=== PATIENT | female | born 1975 | race Caucasian/White ===

== ENCOUNTER → 2016-03-06 | Outpatient (CLI) | payer MEDICAID ==
[~2016-03-06] MED LIST: DILAUDID4 MG PO; FLEXERIL10 MG PO; GABAPENTIN 600600 MG PO; HYDROCODONE-APA1 TA2 PO; LISINOPRIL 5MG T5 MG PO; NORCO 325 MG-101 TAB PO; NORCO 325 MG-51 TAB PO; PHENTERMINE H37.5 M3 PO; PREMARIN 0.60.625 MG PO; PRILOSEC40 MG PO; TRAMADOL 50MG T50 M1 PO; TYLENOL ES500 M1 PO; ZANAFLEX4 M2 PO
[2016-03-06 14:00] LABS: AMPHETAMINES/METAMPHETAMINES NEGATIVE ng/mL (<1000)
== END ==
LOC: LAB 13:40
PROVIDERS: Emergency Medicine
DX: Z79.899 Other long term (current) drug therapy (principal)

== ENCOUNTER → 2016-04-26 | Outpatient (CLI) | payer MEDICAID ==
[2016-04-26 16:00] LABS: AMPHETAMINES/METAMPHETAMINES NEGATIVE ng/mL (<1000)
== END ==
LOC: LAB 13:42
PROVIDERS: Emergency Medicine
DX: Z79.899 Other long term (current) drug therapy (principal)

== ENCOUNTER 2016-11-15 12:10 | Emergency (ER) | payer MEDICAID ==
[~2016-11-15] VITALS: Ht 165.1 cm; Wt 89.8 kg
[2016-11-15] MEDS ORDERED: ESTRACE 2MG. TAB2 MG PO (12:22)
[2016-11-15] MEDS ORDERED: SERTRALINE 100100 MG PO (12:22)
[2016-11-15] MEDS ORDERED: BUPRENORPHINE H1 TAB SL (12:23)
[2016-11-15 12:24] LABS: URINE BILIRUBIN - DIPSTICK NEGATIVE (NEG); URINE BLOOD NEGATIVE (NEG)
--- NOTE | 2016-11-15 12:26 | Emergency Room Report ---
History of Present Illness Time Seen by [id number] Presenting Problem in Triage Pt arrived:Walked Presenting Problem:PT REPORTS VOMITTING THAT BEGAN AFTER EATING THIS MORNING, REPORTS BURNING TYPE EPIGASTRIC PAIN, STATES "IT'S LIKE THE WORST HEARTBURN AGATA EVER HAD". 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 N Clinical Suspician of Infection? N Mental Status: 1 - Regular (Normal Baseline) Sepsis Risk:Low Sepsis Risk Have you (or family members/close friends) recently traveled outside the [place]? N If Yes, where/when: Have you had exposure to infectious disease within the past month? N TB? Other? Specify: Patient states she fell her normal self at 10 K breakfast and at 10:30 had onset of nausea and vomiting she states she has heartburn moderate in severity from her epigastric area going through her chest and into her throat. She states it feels like previous heartburn that she's had she's had nausea and vomiting with a denies diarrhea denies fevers or chills. She states that she's had some chest tightness as well. States she's had chest tightness in the past and has seen her doctor for it and he has given her antacid medicines. No radiation of pain. states she rean out of her antacid medicine, and it feels like bad heartburn, with burning in back of throat. not a new pain for her. Source patient ALLERGIES Coded Allergies: codeine (Intermediate, SWELLING 04/21/16) morphine (Intermediate, MAKES SKIN STING, MAKES FEEL "HATEFUL" 04/21/16) Home Medications Reported Medications Estradiol (Estrace 2MG. Tablet) 2 MG PO DAILY #30 Sertraline Hydrochloride (Sertraline 100MG) 100 MG PO DAILY #30 BUPRENORPHINE HCL/NALOXONE HCL (Buprenorphin-Naloxon 8-2 MG Sl) 2 TAB SL DAILY #14 Gabapentin (Gabapentin 600MG) 600 MG PO Q8 History Medical History General CAD? No Angina: No [place]: No Hypertension? Yes Hyperlipidemia? No CHF? No DVT? No PE? No COPD? No Asthma? No Anemia? No GERD? Yes Gastric ulcers? No GI Bleed? No Hernia? No Thyroid Problems? No Hypothyroidism? No CVA? No Seizures? No Diabetes? No Renal Insuffiency? No End Stage Renal Disease? No UTI? Yes Stones? Yes GB Disease: No Nephritic Syndrome? No Asplenia? No Hepatitis? No Sickle Cell Disease? No Arthritis? No Migraines? No Cataracts? No Glaucoma? No MRSA? No HIV? No TB? No Anxiety? No Depression? No Cancer? No More? 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 Eyes: conjunctiva/corneas clear ENT: Mucous membranes moist. Neck: No jugular venous distention. Cardiac: regular rate and rhythm Lungs: rhonchi auscultation bilaterally Abdomen: +epigastric, Nondistended, positive bowel sounds, no rebound : No CVA tenderness Extremities: no edema Musculoskeletal: No chest wall tenderness Skin: No rashes or lesions to exposed skin. Neurologic: Alert. No gross focal deficits Psychiatric: Normal affect (Eben BULLARD, Donny) General Appearance normal appearance Respiratory Status No: respiratory distress. Cardiovascular normal exam Neurologic alert Medical Decision Making LABS/Meds/Orders Pt receiving controlled substance in ED? No Comment pt states feels better, still a little burning in her throat. still with minimal epigastric tenderness which reproduces her pain. 236 pt states GI cocktail took all of her throat burning away, no complaint of heartburn or pain, dw pt to return if chest pain or any problems to ER. will restart antacids. Results/Orders Laboratory Tests 11/15/16 1235: Sodium 139, Potassium 3.9, Chloride 104, Carbon Dioxide 30, BUN 10, Creatinine 0.8, Estimated Creat Clear 131, Estimated GFR (MDRD) 79, Glucose 94, Calcium 9.0 , Total Bilirubin 0.3, AST 21, ALT 40, Alkaline Phosphatase 100, Troponin I < 0.02, Total Protein 8.1, Albumin 4.1, Globulin 4.0 H, Albumin/Globulin Ratio 1.0 L, Lipase 88, WBC 8.1, RBC 5.25, Hgb 15.5, Hct 45.8, MCV 87.3, RDW 12.5, Plt Count 259, MPV 8.2, Gran % 56.7, Gran # 4.6, Lymphocytes % 30.3, Monocytes % 6.6, Eosinophils % 5.8, Basophils % 0.6, Lymphocytes # 2.4, Monocytes # 0.5, Eosinophils # 0.5 H, Basophils # 0.1, PUBS MCHC 33.8, MCH 29.5 11/15/16 1217: Urine Color YELLOW, Urine Appearance CLEAR, Urine pH 6.0, Ur Specific [place] >= 1.030, Urine Protein NEGATIVE, Urine Ketones NEGATIVE, Urine Blood NEGATIVE, Urine Nitrate NEGATIVE, Urine Bilirubin NEGATIVE, Urine Urobilinogen 0.2, Ur Leukocyte Esterase 1+ H, Urine RBC OCC, Urine WBC 3-5, Ur Squamous Epith Cells 5-10, Urine Bacteria 2+, Urine Glucose NEGATIVE Current Medication Orders Sig/Alek Start time Last Medication Dose Route Stop Time Status Admin Multi-Ingredient GI 60 ML ONCE ONE 11/15 1415 DC 11/15 Drug PO 11/15 141 1416 Multi-Ingredient GI 0 .STK-MED ONE 11/15 1414 DC Drug PO Famotidine 20 MG ONCE ONE 11/15 1245 DC 11/15 IV 11/15 1246 1242 Sodium Chloride 8 ML ONCE ONE 11/15 1245 DC IV 11/15 1246 Famotidine 0 .STK-MED ONE 11/15 1241 DC IV Sodium Chloride 1,000 ML .STK-MED ONE 11/15 1240 DC IV Ondansetron HCl 0 .STK-MED ONE 11/15 1239 DC .ROUTE Ondansetron HCl 4 MG ONCE ONE 11/15 1230 DC 11/15 IV 11/15 1231 1242 Sodium Chloride 10 ML PRN PRN 11/15 1230 AC IV 11/16 1226 Sodium Chloride 1,000 ML .Q1H1M 11/15 1230 DC 11/15 IV 11/15 1330 1242 Sodium Chloride 10 ML PRN PRN 11/15 1230 AC IV 11/16 1227 Orders Procedure Date/time Status ELECTROCARDIOGRAM REQUEST 11/15 1232 Active CHEST(2 VIEWS-NOT PORTABLE) 11/15 1232 Active IV SALINE LOCK 11/15 1229 Active TROPONIN I 11/15 1229 Complete LIPASE 11/15 1229 Complete CBC WITH AUTO DIFF 11/15 1229 Complete CHEM 12 PROFILE 11/15 1229 Complete CULTURE, URINE 11/15 1217 Active URINALYSIS/COMPLETE 11/15 1217 Complete 12 LEAD EKG-JOSE (INITIAL) 11/15 UNK Active 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 Rhythm Sinus Bradycardia Rate 58 Ectopy No Comments Normal axis bradycardia otherwise unremarkable electrocardiogram XRAY/CT/US XRAY/CT/US XRAY chest XR interpretation by reviewed by me Xray Results normal/NAD, no infiltrates Departure Departure Time of Disposition 1437 Disposition DC Home or Self Care(routine) Clinical Impression Primary Impression: Gastroenteritis Secondary Impressions: Epigastric pain Condition STABLE Referrals ARMIN PETERS APRN (PCP/Family) Patient Instructions DI for Abdominal Pain-Adult Additional Instructions return if any chest pain occurs to ER for recheck take your antacids follow up with your PMD, call for recheck Discharge Counseling Counseled pt/family regarding diagnosis, test results, medications/RX, home care, follow up needs Prescriptions Current Visit Scripts Esomeprazole Magnesium (Nexium 24HR) 20 MG PO DAILY #20 Ondansetron Hydrochloride (Ondansetron Odt) 4 MG PO TIDP PRN NAUSEA AND VOMITING #10 ODT ED Critical Care Critical Care No at [id number]
[2016-11-15 12:44] LABS: HEMOGLOBIN 15.5 g/dL (12.2-16.2); LYMPH # 2.4 K/mm3 (0.7-4.5); LYMPH % 30.3 % (10-50.0)
[2016-11-15 13:11] LABS: BUN 10 mg/dL (7-18)
[2016-11-15 13:12] LABS: GFR (ESTIMATED) 79 ML/MIN (59-)
[2016-11-15] MEDS ORDERED: NEXIUM 24HR20 M1 PO (14:41)
[2016-11-15] MEDS ORDERED: ONDANSETRON4 M1 PO (14:41)
[2016-11-15 14:42] VITALS: BP 143/83
--- NOTE | 2016-11-15 15:44 | RADIOLOGY REPORT PS360 ---
CHEST(2 VIEWS-NOT PORTABLE) INDICATION: Chest pain COMPARISON: PA and lateral chest 11/23/2015 FINDINGS: The lung arora are well expanded and appear clear of infiltrate. There is a stable small calcified granuloma left upper lobe The cardiomediastinal silhouette and vascularity are normal. The costophrenic angles are clear. The bony thorax is normal. IMPRESSION: Normal chest.
--- OUTSIDE RECORDS SUMMARY | 2016-11-23 14:05 | External Medical Summary Rpt | CCD ---
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 OUTPATIEN 6 6 PHYSICIAN ANDREW T VISIT S GROUP 15 MINUTES [facility] - 6 6 [facility] INC T OFFICE 14060 [facility] OUTPATIEN 6 6 PHYSICIAN ANDREW T VISIT S GROUP 10 MINUTES [facility] - 6 6 [facility] INC T OFFICE 30199 [facility] OUTPATIEN 6 6 PHYSICIAN ANDREW T VISIT S GROUP 10 MINUTES [facility] - 5 5 [facility] INC T OFFICE 59440 [facility] OUTPATIEN 5 5 PHYSICIAN ANDREW T VISIT 5 S GROUP MINUTES OFFICE 91147 [facility] OUTPATIEN 5 5 [facility] NEW 30 MEDICAL MINUTES GROUP OFFICE 96687 SHAHEEN PETERS OUTPATIEN 5 5 [facility] NEW 30 URGENT MINUTES TREAT OFFICE 50370 [facility] JEAN[facility] OUTPATIEN 5 5 [facility] T VISIT HOSPITAL 15 MINUTES OFFICE 44243 [facility]AR BUX BUX ANJ OUTPATIEN 5 5 [facility] T NEW 30 MINUTES [facility] - 5 5 [facility] T OFFICE 80713 [facility] OUTPATIEN 5 5 [facility] T VISIT INC 10 MINUTES OFFICE 36367 [facility] YMAN OUTPATIEN 5 5 PHYSICIAN EUG T VISIT S GROUP 15 MINUTES OFFICE 03324 [facility] SMOOTH OUTPATIEN 5 5 PHYSICIAN HIWOT T VISIT 5 S GROUP MINUTES OFFICE 32355 [facility] OUTPATIEN 5 5 PHYSICIAN ANDREW T VISIT S GROUP 10 MINUTES [facility] - 5 5 [facility] INC T OFFICE 18345 [facility] OUTPATIEN 5 5 PHYSICIAN ANDREW T VISIT S GROUP 10 MINUTES OFFICE 33763 [facility] OUTPATIEN 5 5 PHYSICIAN ANDREW T VISIT S GROUP 10 MINUTES [facility] - 5 5 [facility] T OFFICE 75778 ALE[facility] SIMENTAL OUTPATIEN 5 5 [facility] TIMOTHY T VISIT 15 MINUTES OFFICE 15691 [facility] OUTPATIEN 5 5 PHYSICIAN ANDREW T VISIT S GROUP 10 MINUTES OFFICE 61129 [facility] OUTPATIEN 5 5 PHYSICIAN ANDREW T VISIT 5 S GROUP MINUTES [facility] - 5 5 [facility] T [facility] 4 4 [facility] T [facility] 4 4 [facility] T OFFICE 33320 [facility] OUTPATIEN 4 4 PHYSICIAN ANDREW T VISIT S GROUP 10 MINUTES OFFICE 20960 [facility] OUTPATIEN 4 4 PHYSICIAN ANDREW T VISIT 5 S GROUP MINUTES OFFICE 60031 [facility] OUTPATIEN 4 4 PHYSICIAN ANDREW T VISIT S GROUP 10 MINUTES OFFICE 36407 [facility] OUTPATIEN 4 4 PHYSICIAN ANDREW T VISIT S GROUP 10 MINUTES OFFICE 12185 ALEA SIMENTAL OUTPATIEN 4 4 [facility] TIMOTHY T VISIT 15 MINUTES OFFICE 98325 [facility] OUTPATIEN 4 4 PHYSICIAN ANDREW T VISIT 5 S GROUP MINUTES [facility] - 4 4 [facility] INC T EMERGENCY 24086 [facility] 4 4 [facility] T VISIT LOW/MODER SEVERITY [facility]OSPITAL [facility] - 4 4 [facility] [place] [place] [facility] INPATIENT [facility] - 4 4 [facility] 95946 [facility] SIMENTAL OUTPATIEN 4 4 [facility] AGUIRRE T VISIT 15 MINUTES EMERGENCY 94588 [facility] 4 4 [facility] EMERGENCY T VISIT PHYS MODERATE SEVERITY [facility] - 4 4 [facility] T OFFICE 76180 ALEA SIMENTAL OUTPATIWALDEMAR 4 4 [facility] AGUIRRE T VISIT 15 MINUTES [facility] - 4 4 [facility] 49216 [facility] 4 4 PHYSICIAN ANDREW T VISIT 5 S GROUP MINUTES INITIAL 88742 [facility] SIMENTAL PREVENTIV 4 4 [facility] AGUIRRE E MEDICINE NEW PT AGE [id number] [facility] 4 [facility]
--- OUTSIDE RECORDS SUMMARY | 2016-11-23 14:05 | External Medical Summary Rpt | CCD ---
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 Name Role Phone LARRY SANCHEZ, LARRY SANCHEZ Unavailable Unavailable JEFF WHITE MD, PSC, Unavailable Unavailable JEFF WHITE MD, PSC [facility] Unavailable Unavailable MED[facility] GROUP, [facility] BEINEKE MAREI, BEINEKE Unavailable Unavailable MARIE CHAVEZ, CHAVEZ Unavailable Unavailable CHAVEZ ALL, CHAVEZ ALL Unavailable Unavailable [facility] Unavailable Unavailable [facility] BUX ANJ, BUX ANJ Unavailable Unavailable [facility], Unavailable Unavailable [facility] Unavailable Unavailable [facility] PEGGY LUCHO, Unavailable Unavailable PEGGY LUCHO PEGGY LUCHO, Unavailable Unavailable PEGG[facility] LUCHO ESTIVEN ANDREW, ESTIVEN Unavailable Unavailable ANDREW [facility] [place], Unavailable Unavailable [facility] [place] DELAIR, DELAIR Unavailable Unavailable FEEBACK REE, FEEBACK Unavailable Unavailable REE FRYMAN EUG, FRYMAN Unavailable Unavailable EUG LARRY, LARRY Unavailable Unavailable LARRY ANDREW, LARRY Unavailable Unavailable ANDREW ALEA SIMENTAL MD, Unavailable Unavailable ALEA SIMENTAL TIMOTHY, HARPEL Unavailable Unavailable TIMOT[facility] Unavailable Unavailable INC, [facility] Unavailable Unavailable HOSPITAL, [facility], [facility]available Unavailable [facility] LORRAINE NAN, LORRAINE Unavailable Unavailable NAN [facility] Unavailable Unavailable [facility], [facility] SUSAN WHITE MD, SUSAN Unavailable Unavailable CHRISTOPHER SANCHEZ, Unavailable Unavailable MANDIE ANN [facility] Unavailable Unavailable [facility], [facility] PETTEY JAM, PETTEY Unavailable Unavailable JAM NICKO HEN, NICKO Unavailable Unavailable HEN PUND CHR, PUND CHR Unavailable Unavailable [facility] Unavailable Unavailable [facility] PABLO SANDOVAL, PABLO Unavailable Unavailable [facility] Un[facility] Unavailable Unavailable ASSIST, [facility] Purpose Continuity of Care Document - 09-03-2013 through 2016 Problems Code Diagnosis DOS Provider Status I10 ESSENTIAL 07-24-2016 [facility] N J209 ACUTE 07-24-2016 [facility] BRONCHITIS N EMERGENCY UNSPECIFIED PHYS R05 COUGH 07-24-2016 [facility] R1110 VOMITING 07-24-2016 [facility] UNSPECIFIED N EMERGENCY PHYS R112 NAUSEA WITH 07-24-2016 [facility] U[facility]PEC[facility]PITAL R197 DIARRHEA 07-24-2016 [facility] UNSPECIFIED N EMERGENCY PHYS [id number] OTHER LONG 07-24-[address] [facility] CURRENT HOSPITAL DRUG THERAPY E663 OVERWEIGHT 06-02-2016 [facility] GROUP M4802 SPINAL 06-02-2016 [facility] STENOSIS PHYSICIANS CERVICAL GROUP REGION M5090 CERVICAL 06-02-2016 [facility] DISC PHYSICIANS DISORDER GROUP UNS UNS CERVICAL REGION M9981 OTHER 06-02-2016 [facility] BIOMECHANIC PHYSICIANS AL LESIONS GROUP OF CERVICAL REGION M5010 CERVICAL 04-24-2016 JEFF WHITE, DISC D/O MD, PSC W/RADICULOP ATHY UNS CERV RGN M5412 RADICULOPAT 04-24-2016 [facility] CERVICAL [facility] REGION INC K219 GASTRO-ESOP 04-10-2016 [facility] H REFLUX PHYSICIANS DISEASE GROUP WITHOUT ESOPHAGITIS R1013 EPIGASTRIC 04-10-2016 [facility] PAIN PHYSICIANS GROUP M5030 OTH 04-03-2016 [facility] DEGENERATIO N UNS CERV REGION W21392 OTHER 04-03-2016 [facility] CERVICAL PHYSICIANS DISC ASSIST DEGENERATIO N AT C4-C5 LEVEL M542 CERVICALGIA 04-03-2016 [facility] 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 Z1231 ENCOUNTER 02-08-2016 [facility] SCREENING PHYSICIANS MAMMO MALIG GROUP NEOPLASM BREAST R1011 RIGHT UPPER 01-28-2016 [facility] R4702 DYSPHASIA 01-28-2016 [facility] R5383 OTHER 12-15-2015 [facility] FATIGUE PHYSICIANS GROUP [id number] STRAIN MUSC 11-25-2015 [facility] FASC & [facility] TENDON NECK INC LEVEL SUBSQT ENC [id number] CONTUSION 11-25-2015 [facility] UNS FRONT [facility] WALL THORAX INC INITIAL ENCNTR R0789 OTHER CHEST 11-23-2015 [facility] PAIN [facility] INC R079 CHEST PAIN 11-23-2015 [place] [facility] [id number] STRAIN 11-23-2015 [facility] MUSCLE [facility]ASC [facility] & TENDON INC NECK LEVL INIT ENC [id number] UNSPECIFIED 11-23-2015 [facility] IN[facility]UR[facility] OF MEDICAL THORAX IMAGING ASS INITIAL ENCOUNTER G243 SPASMODIC 10-26-2015 [facility] URGENT TREAT K210 GASTRO-ESOP 09-27-2015 [facility] HAGEAL [facility] REFLUX URGENT DISEASE W/ TREAT ESOPHAGITIS R635 ABNORMAL 09-27-2015 [facility] WEIGHT GAIN [facility] URGENT TREAT U09611 HORMONE 09-27-2015 [facility] REPLACEMENT [facility] THERAPY URGENT TREAT 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 H9202 OTALGIA 08-23-2015 [facility] LEFT EAR [facility] URGENT TREAT J0190 ACUTE 08-23-2015 [facility] SINUSITIS [facility] UNSPECIFIED URGENT TREAT J208 ACUTE 08-23-2015 [facility] BRONCHITIS [facility] DUE TO URGENT OTHER SPEC TREAT ORGANISMS J302 OTHER 08-23-2015 [facility] SEASONAL [facility] ALLERGIC URGENT RHINITIS TREAT E669 OBESITY 07-07-2015 [facility] UNSPECIFIED PHYSICIANS GROUP Z9289 PERSONAL 07-07-2015 [facility] HISTORY OF PHYSICIANS OTHER GROUP MEDICAL TREATMENT G5601 CARPAL 07-02-2015 [facility] TUNNEL PHYSICIANS SYNDROME GROUP RIGHT UPPER LIMB G5600 CARPAL 05-17-2015 [facility] TUNNEL PHYSICIANS SYNDROME GROUP UNSPECIFIED UPPER LIMB Z139 ENCOUNTER 05-17-2015 [facility] FOR [facility] SCREENING INC UNSPECIFIED 34251 OVERWEIGHT 10-23-2014 [facility] PHYSICIANS GROUP 4779 ALLERGIC 09-18-2014 [facility] MEDICAL UNSPECIFIED GROUP 5990 URINARY 09-18-2014 [facility]ALTH INFECTION MEDICAL SITE NOT GROUP SPECIFIED V145 PERSONAL 09-18-2014 [facility] HISTORY OF HEALTH ALLERGY TO MEDICAL NARCOTIC GROUP AGENT V8532 BODY MASS 09-18-2014 [facility] INDEX HEALTH 32.0-32.9 MEDICAL ADULT GROUP 19849 MORBID 08-18-2014 [facility] OBESITY [facility] URGENT TREAT 4770 ALLERGIC 08-18-2014 [facility] RHINITIS [facility] DUE TO URGENT POLLEN TREAT 73106 OTHER 08-18-2014 [facility] DISEASES OF [facility] NASAL URGENT CAVITY AND TREAT SINUSES 7831 ABNORMAL 08-18-2014 [facility] WEIGHT GAIN [facility] URGENT TREAT 7862 COUGH 08-18-2014 [facility] URGENT TREAT 9953 ALLERGY 08[facility]18-2014 [facility] NOT URGENT ELSEWHERE TREAT CLASSIFIED V8534 BODY MASS 08-18-2014 [facility] INDEX [facility] 34.0-34.9 URGENT ADULT TREAT 05545 ACUTE 07-20-2014 [facility] OTITIS [facility] MEDIA 4610 ACUTE 07-20-2014 [place] MAX[facility]ARY [facility] SINUSITIS HOSPITAL 7224 DEGENERATIO 07-06-2014 SUSAN WHITE N OF CERVICAL INTERVERTEB RAL DISC 7234 BRACHIAL 07-06-2014 SUSAN WHITE NEURITIS OR RADICULITIS NOS 36935 OBESITY, 05-20-2014 [facility] UNSPECIFIED PHYSICIANS GROUP 70870 PAIN IN 03-15-2014 [facility] JOINT, [facility] SHOULDER INC REGION 7231 CERVICALGIA 03-15-2014 [facility] INC V571 OTHER 03-15-2014 [facility] PHYSICAL [facility] THERAPY INC 94924 UNSPECIFIED 03-06-2014 ALEA SIMENTAL MD OF URINE 3540 CARPAL 02-20-2014 [facility] TUNNEL PHYSICIANS SYNDROME GROUP 37606 LUMP OR 01-29-2014 [facility] MASS IN [facility] BREAST INC 6272 SYMPTOMATIC 12-15-2013 ALEA SIMENTAL MD MENOPAUSAL/ FEMALE CLIMACTERIC STATES 78901 OTHER 11-07-2013 [facility] SPECIFIED [facility] DISORDERS [...] ABN THE BLUE BLEED FE GNT TRACT 52649 HEMORRHAGE 10-16-2013 [facility] COMPLICATIN [facility] G A INC PROCEDURE NEC 77478 UNSPECIFIED 10-09-2013 ALEA Thompson VAGINITIS HOLA BULLARD AND VULVOVAGINI TIS 21564 SPASM OF 10-06-2013 [facility] MUSCLE N EMERGENCY PHYS V146 PERSONAL 10-06-2013 [place] [facility] ALLERGY TO HOSPITAL ANALGESIC AGENT V7612 OTHER 09-18-2013 [facility] SCREENING [facility] MAMMOGRAM INC V7231 ROUTINE 09-09-2013 ALEA [...] 09 10 14 7 00 CA Ac MA 05 -0 -0 .0 00 RL ti EN 40 9- 6- 00 00 IS ve OR 18 20 20 78 LE PH 91 17 17 06 IN 3 05 -N UG AL S OX ON 8- 2 MG SL BU 00 09 09 14 7 00 CA Ac MA 05 -0 -2 .0 00 RL ti [...] 06 07 11 7 00 CA Ac MA 05 -2 -2 .0 00 RL ti EN 40 1- 1- 00 00 IS ve OR 18 20 20 77 LE PH 91 17 17 67 IN 3 04 -N UG AL S OX ON 8- 2 MG SL MA 00 06 07 10 5 00 CA [...] 10 6- 9- 00 06 TO ve MA 26 20 20 06 WN IL 80 [...] 2 39 PH CE AR TA MA AK CY NO PH OF EN CY 5- [...] 2 62 PH CE AR TA MA AK CY NO PH OF EN CY 5- NT 32 HI 5 AN A LI 68 04 05 30 30 00 HO Ac SI 00 -1 -0 .0 00 ME ti NO 10 1- 5- 00 06 TO ve MA 26 20 20 06 WN IL 80 [...] 2 73 PH CE AR TA MA AK CY NO PH OF EN CY 5- [...] 2 02 PH CE AR TA MA AK CY NO PH OF EN CY 5- [...] 00 1- 7- 00 06 TO ve MA 51 20 20 06 WN IL 40 [...] 2 65 PH CE AR TA MA AK CY NO PH OF EN CY 5- [...] 2 03 PH CE AR TA MA AK CY NO PH OF EN CY 5- [...] Procedure DOS Code Location Performer Comment PRESSURIZ 52889 [facility] ED/NONPRE 7 [facility] INHALATIO N TREATMENT RADIOLOGI 21155 [facility] C EXAM [address] VIEWS FRONTAL&L ATERAL DRUG TEST 10568 [facility] PRSMV 7 [facility] QUAL DIR INC INC OPTICAL OBS PER DAY DRUG TEST 24429 [facility] PRSMV 7 [facility] QUAL DIR INC INC OPTICAL OBS PER DAY LIPID 56830 [facility] PANEL 7 [facility] INC INC DRUG TEST 77251 [facility] PRSMV 7 [facility] QUAL DIR [place] [address] [facility] THYROXINE 7 [facility] TOTAL INC INC GENERAL 51347 [facility] HEALTH 7 [facility] PANEL INC INC DRUG TEST 97034 [facility] PRSMV 7 [facility] QUAL DIR INC INC OPTICAL OBS PER DAY URNLS DIP 21119 [facility] 7 [facility] STICK/TAB INC INC LET REAGENT AUTO MICROSCOP Y DRUG TEST 43082 [facility] PRSMV 7 [facility] QUAL DIR INC INC OPTICAL OBS PER DAY CULTURE 56190 [facility] BACTERIAL 7 [facility] INC INC QUANTTATI VE COLONY COUNT URINE DRUG TEST 43335 [facility] PRSMV 7 [facility] QUAL DIR INC INC OPTICAL OBS PER DAY DRUG TST G0477 [facility] PRESUMP;C 6 [facility] PBL BEING INC INC READ DC OPT OBV ONLY RADEX 44269 [place] CH[facility] ESOPHAGUS [address] [place] [address] [place] [facility] ABDOMINAL 6 MEDICAL REAL IMAGING TIME ASS W/IMAGE LIMITED DRUG TST G0477 [facility] PRESUMP;C 6 [facility] PBL BEING INC INC READ DC OPT OBV ONLY 3D 96636 [facility] RENDERING 6 [facility] W/INTERP INC INC & POSTPROCE SS SUPERVISI ON MRI 89342 [facility] SPINAL 6 [facility] CANAL INC INC CERVICAL W/O CONTRAST MATRL THERAPEUT 33374 [facility] S[facility]AF IC PX 1/> 6 [facility] AREAS INC INC EACH 15 MIN EXERCISES APPL 84829 [facility] MODALITY 6 [facility] 1/> AREAS INC INC ULTRASOUN D EA 15 MIN APPL 19143 [facility]AF MODALITY 6 [facility] 1/> AREAS INC INC TRACTION MECHANICA L APPL 13921 [facility] MODALITY 6 [facility] 1/> AREAS INC INC TRACTION MECHANICA L APPL 16505 [facility] MODALITY 6 [facility] 1/> AREAS INC INC ULTRASOUN D EA 15 MIN THERAPEUT 58953 [facility] SADAF IC PX 1/> 6 [facility] AREAS INC INC EACH 15 MIN EXERCISES DRUG TST G0477 [facility] PRESUMP;C 6 [facility] PBL BEING INC INC READ DC OPT OBV ONLY PHYSICAL 05832 [facility] THERAPY 6 [facility] EVALUATIO INC INC N DRUG TST G0477 [facility] PRESUMP;C 6 [facility] PBL BEING INC INC READ DC OPT OBV ONLY RADIOLOGI 39886 [facility] ALL C EXAM 6 MEDICAL CHEST 2 IMAGING VIEWS ASS FRONTAL&L ATERAL ANES 35311 [facility] FEEBACK NERVE 6 ANESTH REE MUSCLE OF THE TDN BLUE FASCIA&[place] [address] [facility] INFUSION 6 [facility] THERAPY/P INC INC ROPHYLAXI S /DX 1ST TO 1 HR THERAPEUT 56603 [facility] IC 6 [facility] INJECTION [place] [address] [facility] INFUSION 6 [facility] THERAPY INC INC PROPHYLAX IS/DX EA HOUR NEUROPLAS 89495 [facility] TY 6 [facility] &/TRANSPO INC INC S MEDIAN NRV CARPAL TUNNE NEUROPLAS 42946 [facility] PETTEY TY 6 PHYSICIAN JAM &/TRANSPO S GROUP S MEDIAN NRV CARPAL TUNNE DRUG TST G0477 [facility] PRESUMP;C 6 [facility] PBL BEING INC INC READ DC OPT OBV ONLY ANES 38271 [facility] FEEBACK NERVE 6 ANESTH REE MUSCLE OF THE TDN BLUE FASCIA&BU RSA FOREARM WRIST NEUROPLAS 29720 [facility] PETTE[facility] TY 6 PHYSICIAN JAM &/TRANSPO S GROUP S MEDIAN NRV CARPAL TUNNE DRUG TST G0477 [facility] PRESUMP;C 6 [facility] PBL BEING INC INC READ DC OPT OBV ONLY DRUG TST G0477 [facility] PRESUMP;C 6 [facility] PBL BEING INC [place] [address] [facility] THYROXINE 6 [facility] TOTAL INC INC HEMOGLOBI 21674 [facility] N 6 [facility] GLYCOSYLA INC INC JUNITO A1C GENERAL 82170 [facility] HEALTH 6 [facility] PANEL INC INC COLLECTIO 16500 [facility] N VENOUS 6 [facility] BLOOD INC INC VENIPUNCT URE SCREENING G0202 [place] PE[facility] 5 [facility]ICAL [place] MAMMOGRAP IMAGING HY ARTIE ASS INCL CAD WHEN PERFORMD COMPUTER- 68634 [place] PE[facility] AIDED 5 MEDICAL [place] DETECTION IMAGING ASS SCREENING MAMMOGRAP HY URNLS DIP 15164 [facility] NICKO 5 [facility]ALTH HEN STICK/TAB MEDICAL LET RGNT GROUP AUTO W/O MICROSCOP Y MRI 11953 [facility] SPINAL 5 [facility] CANAL INC INC CERVICAL W/O CONTRAST MATRL THERAPEUT 21649 [facility] IC PX 1/> 5 [facility] AREAS INC INC EACH 15 MIN EXERCISES APPL 02315 [facility] MODALITY 5 [facility] 1/> AREAS INC INC ULTRASOUN D EA 15 MIN MANUAL 45495 [facility] THERAPY 5 [facility] TQS 1/> INC INC REGIONS EACH 15 MINUTES APPL 31808 [facility] MODALITY 5 [facility] 1/> AREAS INC INC ULTRASOUN D EA 15 MIN APPL 11501 [facility] MODALITY 5 [facility] 1/> AREAS INC INC TRACTION MECHANICA L THERAPEUT 99592 [facility] IC PX 1/> 5 [facility] AREAS INC INC EACH 15 MIN EXERCISES THERAPEUT 98848 [facility] IC PX 1/> 5 [facility] AREAS INC INC EACH 15 MIN EXERCISES APPL 65022 [facility] MODALITY 5 [facility] 1/> AREAS INC INC ULTRASOUN D EA 15 MIN APPLICATI 52903 [facility] ON 5 [facility] MODALITY INC INC 1/> AREAS HOT/COLD PACKS MANUAL 23554 [facility] THERAPY 5 [facility] TQS 1/> INC INC REGIONS EACH 15 MINUTES URINLS 64904 ALEA SIMENTAL DIP 5 HOLA AGUIRRE STICK/TAB LET REAGNT NON-AUTO MICRSCPY APPL 40650 [facility] MODALITY 5 [facility] 1/> AREAS INC INC TRACTION MECHANICA L APPL 92847 [facility] MODALITY 5 [facility] 1/> AREAS INC INC ELEC STIMJ UNATTENDE D THERAPEUT 68824 [facility] IC PX 1/> 5 [facility] AREAS INC INC EACH 15 MIN EXERCISES THERAPEUT 64587 [facility] IC PX 1/> 5 [facility] AREAS INC INC EACH 15 MIN EXERCISES APPL 29135 [facility] MODALITY 5 [facility] 1/> AREAS INC INC ELEC STIMJ UNATTENDE D APPL 00599 [facility] MODALITY 5 [facility] 1/> AREAS INC INC TRACTION MECHANICA L APPL 09730 [facility] MODALITY 5 [facility] 1/> AREAS INC INC ULTRASOUN D EA 15 MIN APPL 41888 [facility] MODALITY 5 [facility] 1/> AREAS INC INC ULTRASOUN D EA 15 MIN APPLICATI 48566 [facility] ON 5 [facility] MODALITY INC INC 1/> AREAS HOT/COLD PACKS APPL 25109 [facility] MODALITY 5 [facility] 1/> AREAS INC INC TRACTION MECHANICA L APPL 63781 [facility] MODALITY 5 [facility] 1/> AREAS INC INC ELEC STIMJ UNATTENDE D PHYSICAL 86271 [facility] THERAPY 4 [facility] EVALUATIO INC INC N US BREAST 52991 [facility] REAL 4 [facility] TIME INC INC W/IMAGE DOCUMENTA TION DIAGNOSTI G0206 [facility] C 4 [facility] MAMMOGRAP INC INC HY INCL CAD WHEN PERF; UNI URNLS DIP 97897 [facility] 4 [facility] STICK/TAB INC INC LET REAGENT AUTO MICROSCOP Y BLOOD 47214 [facility] COUNT 4 [facility] COMPLETE INC INC AUTO&AUTO DIFRNTL WBC URINLS 34988 ALEA SIMENTAL DIP 4 HOL[facility] BULLARD TIMOTHY STICK/TAB LET REAGNT NON-AUTO MICRSCPY ANESTHESI 91454 [facility] A 4 ANESTH SANDOVAL INTRAPERI OF THE TONEAL BLUE [place]OWER [place] [address] [facility], MANDIE SURG 4 [facility] DANIEL PATHOLOGY GROSS&ANDREW ROSCOPIC EXAM LEVEL V 11281 [facility], MANDIE SURG 4 [facility] DANIEL PATHOLOGY GROSS&ANDREW ROSCOPIC EXAM OTHER 6859 [facility] VAGINAL 4 [facility] HYSTERECT INC INC HARPREET CONTROL 3998 [facility] OF 4 [facility] HEMORRHAG INC INC E NOT OTHERWISE SPECIFIED URNLS DIP 11707 [facility] 4 [facility] STICK/TAB INC INC LET REAGENT AUTO MICROSCOP Y DIAGNOSTI G0206 [facility] C 4 [facility] MAMMOGRAP INC INC HY INCL CAD WHEN PERF; UNI URINE 88782 [facility] 4 [facility] TEST INC INC VISUAL COLOR CMPRSN METHS US BREAST 96764 [facility] REAL 4 [facility] TIME INC INC W/IMAGE DOCUMENTA TION BLOOD 83089 [facility] COUNT 4 [facility] COMPLETE INC INC AUTO&AUTO DIFRNTL WBC RADIOLOGI 09877 [facility] C EXAM 4 [facility] CHEST 2 INC INC VIEWS FRONTAL&L ATERAL SMR PRIM 86878 ALEA SIMENTAL SRC WET 4 HOLA AGUIRRE MOUNT NFCT AGT THERAPEUT 95973 [facility] IC 4 [facility] TIC/DX INJECTION SUBQ/IM ENDOMETRI 72109 ALEA Thompson AL BX 4 HOLA SIMENTAL MD W/WO ENDOCERVI X BX W/O DILAT SPX SCREENING G0202 JOSELITO YEE 4 MARIE MARIE MAMMOGRAP HY ARTIE INCL CAD WHEN PERFORMD [facility]- 71766 [facility] AIDED 4 [facility] HOSP DETECTION INC INC SCREENING MAMMOGRAP HY URINLS 15094 ALEA MAKIL DIP 4 HOLA AGUIRRE STICK/TAB [place] [address] [facility] THYROID 4 [facility] HOSP STIMULATI INC INC NG HORMONE TSH IADNA 39940 ALEA SIMENTAL NEISSERIA 4 HOLA AGUIRRE GONORRHOE AE DIRECT PROBE TQ BLOOD 58873 ALEA SIMENTAL OCCULT 4 HOLA AGUIRRE PEROXIDAS E ACTV QUAL FECES 1-3 SPEC BLOOD 02236 [facility] COUNT 4 [facility] COMPLETE INC INC AUTO&AUTO DIFRNTL WBC CULTURE 98436 ALEA SIMENTAL CHLAMYDIA 4 [place] [address] [facility] TRANSVAGI 4 [facility] NAL INC INC Encounters Encounter Start End Date Code Location Performer Type Date [facility] [address] [place] [address] T EMERGENCY [address] T VISIT HIGH/URGE NT SEVERITY [facility] T [facility] OUTPATIEN INC T OFFICE [id number] [facility] OUTPATIEN 7 7 PHYSICIAN T VISIT S GROUP 15 MINUTES [facility] 42746 [facility] PHYS[facility] T VISIT S GROUP 25 MINUTES [facility] T OFFICE 29787 [facility] 7 [facility] T VISIT INC 10 MINUTES OFFICE 06954 [facility] OUTPATIEN 7 7 PHYSICIAN T NEW 20 S GROUP MINUTES [facility] T OFFICE 97498 [facility] OUTPATIEN 7 7 PHYSICIAN T [facility]ISIT S GROUP 25 MINUTES [facility] OFFICE 80587 [facility] 7 7 [facility] T VISIT 5 E MINUTES [facility]OSP[facility] OFFICE 00402 [facility] CONSULT 7 7 [place] PHYSICIAN NEW/ESTAB S ASSIST PATIENT 60 MIN OFFICE 28438 [facility] OUTPATIEN 7 7 PHYSICIAN T VISIT S GROUP 15 MINUTES [facility] T [facility] - [facility] 6 [facility] T OFFICE 83727 [facility] OUTPATIEN 6 6 PHYSICIAN T VISIT S GROUP 25 MINUTES [facility] T OFFICE 45123 [facility] OUTPATIEN 6 6 PHYSICIAN ANDREW T [facility]ISIT S GROUP 25 MINUTES [facility] - 6 6 [facility] T [facility] - [facility] T OFFICE 05659 [facility] OUTPATIEN 6 6 PHYSICIAN ANDREW T [facility]ISIT S GROUP 25 MINUTES [facility] - 6 6 [facility] 6 6 [facility] [id number] [facility] [address] [facility] T VISIT LIMITED/M INOR PROB EMERGENCY 60748 [facility] 6 6 [facility] T VISIT LIMITED/M INOR PROB OFFICE 01122 [facility] OUTPATIEN 6 6 PHYSICIAN ANDREW T [facility]ISIT S GROUP 15 MINUTES [facility] - 6 6 [facility] T OFFICE 93710 [facility] 25 TREAT MINUT[facility] OFFICE 04965 [facility] 25 TREAT MINUTES [facility] 6 6 [facility] T OFFICE 02677 [facility]PATI[facility] 6 6 [facility] VISIT [facility]ENT 25 TREAT MINUTES OFFICE 27227 [facility] OUTPATIEN 6 6 PHYSICIAN ANDREW T [facility]ISIT S GROUP 10 MINUTES [facility] - 6 6 [facility] T OFFICE 62248 [facility]PATI[facility] 6 6 PHYSICIAN ANDREW T [facility]ISIT S GROUP 15 MINUTES [facility] - 6 6 [facility] T OFFICE 72141 [facility] OUTPATIEN 6 6 PHYSICIAN ANDREW T VISIT S GROUP 15 MINUT[facility] OFFICE 81869 [facility] OUTPATIEN 6 6 PHYSICIAN JAM T NEW 30 S GROUP MINUTES OFFICE 30834 [facility] OUTPATIEN 6 6 PHYSICIAN ANDREW T VISIT S GROUP 15 MINUTES [facility] OFF[facility] [id number] [facility]IEN 6 6 PHYSICIAN ANDREW T [facility]ISIT S GROUP 10 MINUTES [facility] OFF[facility] 36459 [facility] OUTPATIEN 6 6 [facility]YSIC[facility] ANDREW T [facility]ISIT S GROUP 10 [facility]UTES [facility] OFF[facility] 19671 [facility] OUTPATIEN 5 5 PHYSICIAN ANDREW T VISIT 5 S GROUP MINUTES OFFICE 01669 DRUZE NICKO OUTPATIEN 5 5 [facility] NEW 30 MEDICAL MINUTES GROUP OFFICE 13082 SHAHEEN PETERS OUTPATIEN 5 5 [facility] NEW 30 URGENT MINUTES TREAT OFFICE 78202 [facility] JEAN-BAPTISTE OUTPATIEN 5 5 [facility] T VISIT HOSP[facility] 15 MINUTES OFFICE 65501 MADAR BUX BUX ANJ OUTPATIEN 5 5 [facility] T OFFICE 91350 [facility] 5 [facility] T V[facility] INC 10 MINUTES OFFICE 27407 [facility] YMAN OUTPATIEN 5 5 PHYSICIAN EUG T VISIT S GROUP 15 MINUTES OFFICE 96475 [facility] SMOOTH OUTPATIEN 5 5 PHYSICIAN HIWOT T VISIT 5 S GROUP MINUTES OFFICE 80219 [facility] OUTPATIEN 5 5 PHYSICIAN ANDREW T VISIT S GROUP 10 MINUTES [facility] T OFFICE 88710 [facility] OUTPATIEN 5 5 PHYSICIAN ANDREW T VISIT S GROUP 10 MINUTES OFFICE 43587 [facility] OUTPATIEN 5 5 PHYSICIAN ANDREW T VISIT S GROUP 10 MINUTES [facility] T OFFICE 98125 ALEA SIMENTAL OUTPATIEN 5 5 [facility] TIMOTHY T VISIT 15 MINUTES OFFICE 92077 [facility] OUTPATIEN 5 5 PHYSICIAN ANDREW T VISIT S GROUP 10 MINUTES OFFICE 75550 [facility] OUTPATIEN 5 5 PHYSICIAN ANDREW T VISIT 5 S GROUP MINUTES [facility] T OFFICE 16872 [facility] OUTPATIEN 4 4 PHYSICIAN ANDREW T VISIT S GROUP 10 MINUTES OFFICE 88879 [facility] OUTPATIEN 4 4 PHYSICIAN ANDREW T VISIT 5 S GROUP MINUTES OFFICE 89714 [facility] OUTPATIEN 4 4 PHYSICIAN ANDREW T VISIT S GROUP 10 MINUTES OFFICE 07845 [facility] OUTPATIEN 4 4 PHYSICIAN ANDREW T VISIT S GROUP 10 MINUTES OFFICE 59459 ALEA SIMENTAL OUTPATIEN 4 4 [facility] BULLARD TIMOTHY T VISIT 15 MINUTES OFFICE 95408 [facility] OUTPATIEN 4 4 PHYSICIAN ANDREW T VISIT 5 S GROUP MINUTES [facility] T EMERGENCY 97628 [facility] 4 4 [facility] T VISIT LOW/MODER SEVERITY [facility] 4 4 [facility] 4 [facility] 58990 ALEA SIMENTAL OUTPATIEN 4 4 [facility] AGUIRRE T VISIT 15 MINUTES EMERGENCY 64860 [facility] 4 4 [facility] EMERGENC[facility] T VISIT PHYS MODERATE SEVERITY [facility] - 4 4 [facility] T OFFICE 72243 ALEA SIMENTAL OUTPATIWALDEMAR 4 4 [facility] AGUIR[facility] T VISIT 15 MINUTES [facility] 4 [facility] 75798 [facility] 4 4 PHYSICIAN ANDREW T VISIT 5 S GROUP MINUTES INITIAL 67107 ALEA SIMENTAL PREVENTIV 4 4 [facility] AGUIRRE E MEDICINE NEW PT AGE [id number] [facility] 4 4 [facility]
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
--- OUTSIDE RECORDS SUMMARY | 2016-11-23 14:09 | External Medical Summary Rpt | CCD ---
Demographics Preferred Language Kinyarwanda Marital Status Unknown Worship Affiliation Unknown Race Unknown Ethnic Group Unknown Author Author , JANA BATES Address Unknown Phone Immunization No patient found.
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
--- OUTSIDE RECORDS SUMMARY | 2016-11-23 14:09 | External Medical Summary Rpt | CCD ---
Demographics Preferred Language Tajik Marital Status Unknown Muslim Affiliation Unknown Race Unknown Ethnic Group Unknown Author Author , JANA BATES Address Unknown Phone Immunization No patient found.
== END 2016-11-15 14:42 | disposition home or self-care (01) ==
LOC: ER 12:10
PROVIDERS: Emergency Medicine
DX: K52.9 Noninfective gastroenteritis and colitis, unspecified (principal); R10.13 Epigastric pain; K21.9 Gastro-esophageal reflux disease without esophagitis; I10 Essential (primary) hypertension; Z88.6 Allergy status to analgesic agent; Z87.891 Personal history of nicotine dependence
CPT/HCPCS: J2405